=== PATIENT | male | born 1995 | race Caucasian/White ===

== ENCOUNTER 2017-01-19 17:48 | Emergency (ER) | payer BC, OTHER ==
[~2017-01-19] VITALS: Ht 190.5 cm; Wt 81.0 kg
[~2017-01-19 17:48] MED LIST: CEPH-368 PO
[2017-01-19] MEDS ORDERED: EPINEPHRINE 1 MG/ML, 1ML ONE (18:03)
[2017-01-19] MEDS ORDERED: DIPHENHYDRAMINE 50 MG/ML, 1ML ONE (18:07)
[2017-01-19] MEDS ORDERED: methylPREDNISolone SOD SUCC 125 MG/2 ML ONE (18:07)
[2017-01-19] MEDS ORDERED: FAMOTIDINE 20 MG/2 ML ONE (18:12)
[2017-01-19] MEDS ORDERED: FAMOTIDINE 20 MG/2 ML IVPush ONE (18:30)
[2017-01-19] MEDS ORDERED: PLEASE ENTER HEIGHT AND WEIGHT MC SCH (18:30)
[2017-01-19] MEDS ORDERED: methylPREDNISolone SOD SUCC 125 MG/2 ML IVPush ONE (18:30)
[2017-01-19] MEDS ORDERED: SODIUM CHLORIDE 0.9% 1,000ML IVBOLUS ONE (18:30)
[2017-01-19] MEDS ORDERED: DIPHENHYDRAMINE 50 MG/ML, 1ML IVPush ONE (18:30)
[2017-01-19 18:41] LABS: BLOOD UREA NITROGEN 21 mg/dL (7-18)
[2017-01-19 19:56] VITALS: BP 145/75
== END 2017-01-19 20:35 | disposition home or self-care (01) ==
LOC: ED 20:11
DX: T50.905A Adverse effect of unspecified drugs, medicaments and biological substances, initial encounter (principal); L50.0 Allergic urticaria; X58.XXXA Exposure to other specified factors, initial encounter; Y99.8 Other external cause status; Y93.89 Activity, other specified; Y92.89 Other specified places as the place of occurrence of the external cause
CPT/HCPCS: 36415; 80048; 82040; 85025; 96361; 96374; 96375; 99285; J1200; J2930; J7030; S0028